=== PATIENT | male | born 1940 | race Caucasian/White ===

== ENCOUNTER 2017-05-27 21:15 | Inpatient (IN) | payer OTHER ==
[~2017-05-27] VITALS: Ht 170.2 cm; Wt 84.6 kg
[2017-05-27 21:42] LABS: BASOPHIL (%) 0.5 % (0-1); EOSINOPHIL (%) 1.9 % (0-5); EOSINOPHIL COUNT 0.2 K/uL (0-0.3); HEMOGLOBIN 13.5 G/DL (12.5-16.6); IMMATURE GRANULOCYTE (%) 0.4 % (0.0-0.7); LYMPHOCYTE (%) 16.6 % (15-42); LYMPHOCYTE COUNT 1.3 K/uL (1.0-2.8); MCH 30.2 PG (29.0-34.0); MCHC 33.8 G/DL (30.0-36.0); MCV 89.5 FL (86-99); MONOCYTE (%) 9.7 % (3-12); MONOCYTE COUNT 0.8 K/uL (0-0.8); NEUTROPHIL (%) 70.9 % (45-76); NEUTROPHIL COUNT 5.5 K/uL (1.8-6.4); PLATELET COUNT 222 K/uL (156-360); RBC DIS.WIDTH-CV 13.2 % (11.8-14.6); RBC DIS.WIDTH-SD 43.4 % (39-53); RED BLOOD COUNT 4.47 M/uL (4.00-5.50); WHITE BLOOD COUNT 7.8 K/uL (4.1-10.2)
[2017-05-27 21:50] LABS: CHLORIDE 108 mEq/L (99-109); POTASSIUM 3.9 mEq/L (3.7-5.4); SODIUM 138 mEq/L (136-147)
[2017-05-27 21:52] LABS: GLUCOSE 108 mg/dL (70-99)
[2017-05-27 21:55] LABS: GFR ESTIMATE (CALCULATED) > 59 mL/min/ (58.99-99999)
[2017-05-27 21:56] LABS: UREA NITROGEN (BUN) 12 mg/dL (9-23)
[2017-05-27 22:55] LABS: ALBUMIN 4.1 g/dL (3.2-4.8)
[2017-05-27 22:58] LABS: TOTAL PROTEIN 6.7 g/dL (6.4-8.3)
[2017-05-27 22:59] LABS: TOTAL BILIRUBIN 0.4 mg/dL (0.0-1.0)
[2017-05-27 23:00] LABS: ALKALINE PHOSPHATASE 82 IU/L (3-129)
[2017-05-27 23:03] LABS: AST (GOT) 23 IU/L (2-34); DIRECT BILIRUBIN 0.1 mg/dL (0.0-0.3)
[2017-05-27 23:04] LABS: ALT (GPT) 15 IU/L (3-49); LIPASE 36 U/L (1.0-51.0)
[2017-05-28 02:01] LABS: MAGNESIUM 1.8 mg/dL (1.3-2.7)
[2017-05-28 02:34] LABS: APPEARANCE CLEAR ((CLEAR)); BILIRUBIN NEGATIVE; BLOOD NEGATIVE; COLOR COLORLESS ((YELLOW)); GLUCOSE (STRIP) NEGATIVE; KETONES NEGATIVE; LEUKOCYTES NEGATIVE; NITRITE NEGATIVE; PROTEIN (STRIP) NEGATIVE; SPECIFIC GRAVITY 1.017 (1.000-1.030); UCUL ADDED? NO; UROBILINOGEN 0.2 MG/DL (0.2-1.0)
[2017-05-28] MEDS ORDERED: OMEPRAZOLE20 MG PO (10:23)
[2017-05-28] MEDS ORDERED: OMEGA-31000 M1 PO (10:24)
[2017-05-28 18:18] VITALS: BP 127/57
[2017-05-28 19:15] VITALS: BP 139/86
[2017-05-29] VITALS (7 sets, daily range): BP systolic 120–136; BP diastolic 58–92
[2017-05-29 06:01] LABS: MCH 29.5 PG (29.0-34.0); MCHC 31.9 G/DL (30.0-36.0); MCV 92.3 FL (86-99); PLATELET COUNT 165 K/uL (156-360); RBC DIS.WIDTH-CV 13.8 % (11.8-14.6); RBC DIS.WIDTH-SD 46.6 % (39-53); WHITE BLOOD COUNT 5.2 K/uL (4.1-10.2)
[2017-05-29 06:04] LABS: HEMOGLOBIN 11.5 G/DL (12.5-16.6)
[2017-05-29 06:20] LABS: ALBUMIN 3.1 G/DL (3.2-4.8); ALKALINE PHOSPHATASE 63 IU/L (3-129); ALT (GPT) 11 IU/L (3-49); AST (GOT) 18 IU/L (2-34); CHLORIDE 107 MEQ/L (99-109); CREATININE 0.9 MG/DL (0.6-1.3); GFR ESTIMATE (CALCULATED) > 59 mL/min/ (58.99-99999); GLUCOSE 88 mg/dL (70-99); SODIUM 139 MEQ/L (136-147); TOTAL BILIRUBIN 0.3 MG/DL (0.0-1.0); TOTAL PROTEIN 5.3 G/DL (6.4-8.3); UREA NITROGEN (BUN) 10 mg/dL (9-23)
[2017-05-30 05:16] VITALS: BP 134/72
[2017-05-30 05:52] LABS: HEMATOCRIT 39.8 % (38.0-50.0); HEMOGLOBIN 12.7 G/DL (12.5-16.6); MCH 29.3 PG (29.0-34.0); MCHC 31.9 G/DL (30.0-36.0); MCV 91.9 FL (86-99); PLATELET COUNT 188 K/uL (156-360); RBC DIS.WIDTH-CV 13.5 % (11.8-14.6); RBC DIS.WIDTH-SD 46.6 % (39-53); RED BLOOD COUNT 4.33 M/uL (4.00-5.50); WHITE BLOOD COUNT 3.5 K/uL (4.1-10.2)
[2017-05-30 06:16] LABS: CHLORIDE 106 MEQ/L (99-109); CREATININE 0.9 MG/DL (0.6-1.3); GFR ESTIMATE (CALCULATED) > 59 mL/min/ (58.99-99999); GLUCOSE 86 mg/dL (70-99); POTASSIUM 4.2 MEQ/L (3.7-5.4); SODIUM 143 MEQ/L (136-147); UREA NITROGEN (BUN) 9 mg/dL (9-23)
[2017-05-30 07:49] VITALS: BP 145/82
[2017-05-30] MEDS ORDERED: OSELTAMIVIR PHO75 MG PO (07:58)
[2017-05-30 11:25] VITALS: BP 125/66
== END 2017-05-30 13:21 | disposition home or self-care (01) | DRG 309 ==
LOC: EME 21:15 → 4EAST 05-28 00:51 → EDOF 05-28 00:51 → CANRESERV 05-28 00:58 → ENRESERV 05-28 00:58 → 4EAST 05-28 18:04
PROVIDERS: Emergency Medicine; Physician Assistant; Physician Assistant Medical
DX: I48.0 Paroxysmal atrial fibrillation (principal); J10.1 Influenza due to other identified influenza virus with other respiratory manifestations; L08.9 Local infection of the skin and subcutaneous tissue, unspecified; E87.2 Acidosis; R60.0 Localized edema; K21.9 Gastro-esophageal reflux disease without esophagitis; I71.2 Thoracic aortic aneurysm, without rupture; Z85.820 Personal history of malignant melanoma of skin; Z85.21 Personal history of malignant neoplasm of larynx; Z79.899 Other long term (current) drug therapy; Z90.49 Acquired absence of other specified parts of digestive tract
CPT/HCPCS: 71250; 74177; 80048; 80053; 80076; 81003; 83605; 83690; 83735; 85025; 85027; 85730; 87040; 87502; 93005; 93306; 93971; 94799; 99281; 99285; J0690; J1644; J2405; J3370; J7030; J7120

== ENCOUNTER 2017-07-15 09:44 | Emergency (ER) | payer OTHER ==
[~2017-07-15] VITALS: Ht 170.2 cm; Wt 81.8 kg
[~2017-07-15 09:44] MED LIST: OMEGA-31000 M1 PO; OMEPRAZOLE20 MG PO; OSELTAMIVIR PHO75 MG PO
[2017-07-15 10:32] LABS: HEMOGLOBIN 14.2 G/DL (12.5-16.6); MCH 29.7 PG (29.0-34.0); PLATELET COUNT 233 K/uL (156-360); RBC DIS.WIDTH-CV 13.4 % (11.8-14.6); RBC DIS.WIDTH-SD 44.5 % (39-53); RED BLOOD COUNT 4.78 M/uL (4.00-5.50); WHITE BLOOD COUNT 5.1 K/uL (4.1-10.2)
[2017-07-15 10:40] LABS: CHLORIDE 104 mEq/L (99-109); POTASSIUM 4.6 mEq/L (3.7-5.4); SODIUM 137 mEq/L (136-147)
[2017-07-15 10:41] LABS: APPEARANCE CLEAR ((CLEAR)); BILIRUBIN NEGATIVE; BLOOD NEGATIVE; COLOR YELLOW ((YELLOW)); GLUCOSE (STRIP) NEGATIVE; KETONES NEGATIVE; LEUKOCYTES NEGATIVE; NITRITE NEGATIVE; PROTEIN (STRIP) NEGATIVE; SPECIFIC GRAVITY 1.014 (1.000-1.030); UROBILINOGEN 0.2 MG/DL (0.2-1.0)
[2017-07-15 10:42] LABS: GLUCOSE 95 mg/dL (70-99)
[2017-07-15 10:44] LABS: TOTAL BILIRUBIN 0.4 mg/dL (0.0-1.0)
[2017-07-15 10:46] LABS: ALKALINE PHOSPHATASE 89 IU/L (3-129); CREATININE 0.8 mg/dL (0.6-1.3); GFR ESTIMATE (CALCULATED) > 59 mL/min/ (58.99-99999)
[2017-07-15 10:47] LABS: UREA NITROGEN (BUN) 8 mg/dL (9-23)
[2017-07-15 10:48] LABS: AST (GOT) 20 IU/L (2-34)
[2017-07-15 10:49] LABS: ALT (GPT) 15 IU/L (3-49); LIPASE 26 U/L (1.0-51.0)
[2017-07-15 11:54] VITALS: BP 138/83
== END 2017-07-15 11:54 | disposition home or self-care (01) ==
LOC: EME 09:44
PROVIDERS: Physician Assistant
DX: B34.9 Viral infection, unspecified (principal); Z85.820 Personal history of malignant melanoma of skin
CPT/HCPCS: 80053; 81003; 83690; 85027; 87502; 99281; 99283